=== PATIENT | male | born 1990 | race Caucasian/White ===

== ENCOUNTER 2023-08-10 21:58 | Emergency (ER) | payer SELFPAY ==
[~2023-08-10] VITALS: Ht 188 cm; Wt 66.0 kg
[2023-08-10 23:01] VITALS: O2SAT 100
[2023-08-11] MEDS ORDERED: IBUPROFEN 800 MG TAB PO ONE (00:45)
[2023-08-11 01:20] VITALS: BP 110/76; PULSE 73; RESP 20
[2023-08-11] MEDS ORDERED: KETOROLAC TROMETH 60MG/2ML VIAL IM ONE (02:30)
== END 2023-08-11 03:35 | disposition home or self-care (01) ==
LOC: ER 21:58
DX: S43.401A Unspecified sprain of right shoulder joint, initial encounter (principal); M25.521 Pain in right elbow; X58.XXXA Exposure to other specified factors, initial encounter; Y93.89 Activity, other specified; Y92.89 Other specified places as the place of occurrence of the external cause; Y99.8 Other external cause status
CPT/HCPCS: 73030; 73080; 96372; 99284; J1885

== ENCOUNTER 2024-06-01 07:36 | Emergency (ER) | payer BC, OTHER ==
[~2024-06-01] VITALS: Ht 188 cm; Wt 65.0 kg
[2024-06-01] MEDS: SODIUM CHLORIDE 0.9% 1,000 ML IV ONE (08:52)
[2024-06-01] MEDS: MORPHINE SULFATE INJ 2 MG/ml SYRG IV ONE (08:55)
[2024-06-01 08:56] LABS: Hemoglobin 16.3 g/dL (13.5-17.5); Mean Corpuscular Hemoglobin 31.8 pg (28.0-32.0); Mean Corpuscular Hgb Conc. 34.8 g/dL (32.0-36.0); Mean Corpuscular Volume 91.4 fL (80.0-100.0); Platelet Count (auto) 264 10^3/uL (140-450); Red Blood Cells 5.15 10^6/uL (4.5-5.90); Red Cell Distribution Width 13.2 % (11.8-14.3); White Blood Cell 16.5 10^3/uL (4.4-10.8)
[2024-06-01 09:01] LABS: Basophils % (manual) 0 (0.0-2.0); Blast Cells 0; Eosinophils % (manual) 0 (0-7); Metamyelocytes % 0; Myelocytes % 0; Promyelocytes % 0; Reactive Lymphocytes 0
[2024-06-01 09:09] LABS: Band Neutrophils % (manual) 8; Lymphocytes % (manual) 4 (10.0-50.0); Monocytes % (manual) 6 (0-12)
[2024-06-01 09:11] LABS: Platelet Estimate Adequate; RBC Morphology Normal
[2024-06-01 09:17] LABS: Chloride 103 mmol/L (98-107); Potassium 4.2 mmol/L (3.5-5.1); Sodium 133 mmol/L (136-145)
[2024-06-01 09:18] LABS: Anion Gap 7 (5-15); Calcium 10.1 mg/dL (8.7-10.4); Carbon Dioxide 23 mmol/L (20-30)
[2024-06-01 09:23] LABS: BUN/Creatinine Ratio 11.2 (10.0-20.0); Blood Urea Nitrogen 13 mg/dL (9-23); Glucose 133 mg/dL (74-106)
[2024-06-01] MEDS: IOHEXOL 300 MG/ML 100ML BOTTLE IJ ONE (09:58)
[2024-06-01] MEDS: cefTRIAXone 2GM/50ML D5W 50 ML IV ONE (10:30)
[2024-06-01] MEDS: KETOROLAC TROMETH 60MG/2ML VIAL IM ONE (10:37)
[2024-06-01] MEDS ORDERED: VANCOMYCIN PER PHARMACY 0 MG IV SCH (11:00)
[2024-06-01 11:11] VITALS: PULSE 66; RESP 18; O2SAT 98
[2024-06-01] MEDS: VANCOMYCIN 1.25GM/250ML 250 ML IV ONE (11:31)
[2024-06-01] MEDS: PIPERACILLIN-TAZOB 3.375GM 100 ML IV SCH (13:30)
[2024-06-01 14:02] VITALS: TEMP 98; O2SAT 99
[2024-06-01 15:07] VITALS: BP 108/98; PULSE 88; RESP 20
[2024-06-01] MEDS: MORPHINE SULFATE 4 MG/ML SYR/VIAL IV ONE (15:07)
[2024-06-01] MEDS: ONDANSETRON HCL 4 MG/2 ML VIAL IV ONE (15:07)
[2024-06-01] MEDS ORDERED: VANCOMYCIN 1GM/200ML 200 ML IV SCH (23:00)
== END 2024-06-01 17:18 | disposition left against medical advice (07) ==
LOC: ER 07:36
DX: L03.113 Cellulitis of right upper limb (principal); L02.511 Cutaneous abscess of right hand; Z88.0 Allergy status to penicillin
CPT/HCPCS: 36415; 73201; 80048; 85007; 85027; 96361; 96365; 96367; 96372; 96375; 96376; 99285; J0696; J1885; J2270; J2405; J2543; J7030; Q9967